=== PATIENT | male | born 1985 | race Two or more races ===

== ENCOUNTER 2020-09-20 07:40 | Emergency (ER) | payer SELFPAY ==
[~2020-09-20] VITALS: Ht 180.3 cm; Wt 99.8 kg
[2020-09-20] MEDS ORDERED: MORPHINE SULFATE 4 MG/1 ML DISP.SYRIN ONE (08:06)
[2020-09-20] MEDS ORDERED: ONDANSETRON 4 MG/2 ML VIAL ONE (08:06)
--- NOTE | 2020-09-20 08:09 | NUR ---
PATIENT STATES HE FELL OFF [employer] WORK. DENIES HITTING HIS HEAD. HE IS A/A/O X3/ C/O LEFT ANKLE PAIN AND SWELLING. WAS SEEN BY . IV PLACED, MEDS GIVEN ORDERED.
[2020-09-20] MEDS ORDERED: MORPHINE SULFATE 4 MG/1 ML DISP.SYRIN IV ONE (08:15)
[2020-09-20] MEDS ORDERED: ONDANSETRON 4 MG/2 ML VIAL IV ONE (08:15)
--- NOTE | 2020-09-20 08:43 | NUR ---
Splint applied to left lower leg. Crutches dispensed and instructions with return demonstration by patient completed. DC, Rx (includingNorco and morphine precautions)given and explained to patient who states he understands all instructions. patient to f/u with Ortho MD ADEEL, patient states he understands. patient states pain has diminshed some (since morphine)
--- NOTE | 2020-09-20 09:27 | NUR ---
IV removed. Catheter intact and site benign. Pressure and 4x4 gauze applied to site. No bleeding noted.
--- NOTE | 2020-09-20 09:27 | NUR ---
awaiting for his ride home.
== END 2020-09-20 09:55 | disposition home or self-care (01) ==
LOC: ER 07:40
DX: S82.832A Other fracture of upper and lower end of left fibula, initial encounter for closed fracture (principal); W17.89XA Other fall from one level to another, initial encounter; Y92.69 Other specified industrial and construction area as the place of occurrence of the external cause; Y99.0 Civilian activity done for income or pay; Z87.442 Personal history of urinary calculi
CPT/HCPCS: 29515; 73610; 96374; 96375; 99284; J2270; J2405; A4663